=== PATIENT | male | born 1995 | race Hispanic/Latino ===

== ENCOUNTER 2024-09-22 19:02 | Emergency (ER) | payer SELFPAY ==
[2024-09-22] MEDS ORDERED: LIDOCAINE 1% 20 ML MDV ONE (19:41)
--- NOTE | 2024-09-22 20:59 | ER ---
Nurse's Notes [facility] Name: Jorge Oro Age: 29 yrs Sex: Male : 1995 Arrival Date: 09/22/2024 Time: 19:02 Bed 10 Private MD: Diagnosis: Puncture wound without foreign body of left hand Presentation: 09/22 19:27 Chief complaint: Patient states: Got a splinter in his left index finger this morning. cm10 Coronavirus screen: Client denies travel out of the [place] in the last 14 days. Ebola Screen: Patient denies travel to an Ebola-affected area in the 21 days before illness onset. Initial Sepsis Screen: Does the patient meet any 2 criteria? No. Patient's initial sepsis screen is negative. Does the patient have a suspected source of infection? No. Patient's initial sepsis screen is negative. Risk Assessment: Do you want to hurt yourself or someone else? Patient reports no desire to harm self or others. Onset of symptoms was September 22, 2024. 19:27 Method Of Arrival: Ambulatory 10 19:27 Acuity: YAMEL 4 cm10 Triage Assessment: 19:28 General: Appears in no apparent distress. uncomfortable, Behavior is calm, cooperative. cm10 Pain: Denies pain. Neuro: No deficits noted. Level of Consciousness is awake, alert, obeys commands, Oriented to person, place, time, situation, Appropriate for age. Respiratory: No deficits noted. Airway is patent Respiratory effort is even, unlabored, Respiratory pattern is regular, symmetrical. Historical: - Allergies: 19:28 No Known Allergies; cm10 - Home Meds: 19:28 None [Active]; cm10 - PMHx: 19:28 None; cm10 - PSHx: 19:28 None; cm10 - Immunization history:: Adult Immunizations up to date. - Infectious Disease History:: Denies. - Social history:: Smoking status: Reported history of juuling and/or vaping. Screenin:44 [facility] ED Fall Risk Assessment (Adult) History of falling in the last 3 months, bm8 including since admission No falls in past 3 months (0 pts) Confusion or Disorientation No (0 pts) Intoxicated or Sedated No (0 pts) Impaired Gait No (0 pts) Mobility Assist Device Used No (0 pt) Altered Elimination No (0 pt) Score/Fall Risk Level 0 - 2 = Low Risk Oriented to surroundings, Maintained a safe environment, Educated pt \T\ family on fall prevention, incl call for assistance when getting out of bed, Assessed \T\ reinforced patient's understanding of fall precautions, Hourly rounding (assess needs \T\ fall precautionary measures) done, Used ambulatory aids as needed (educated on \T\ assisted with), Used gait belt as appropriate. Abuse screen: Denies threats or abuse. Nutritional screening: No deficits noted. Tuberculosis screening: No symptoms or risk factors identified. Assessment: 19:44 General: Appears in no apparent distress. comfortable, Behavior is calm, cooperative, bm8 appropriate for age. Pain: Denies pain. Neuro: No deficits noted. Level of Consciousness is awake, alert, obeys commands, Oriented to person, place, time, situation, Appropriate for age. Cardiovascular: Denies chest pain, Capillary refill < 3 seconds in bilateral fingers Patient's skin is warm and dry. Respiratory: Airway is patent Respiratory effort is even, unlabored, Respiratory pattern is regular, symmetrical, Breath sounds are clear bilaterally. Derm: Wound noted lateral aspect of left fingers Wound is pt reports getting splinter into left index finger while working near [employer]. Swelling and redness noted to finger. 21:11 Reassessment: Patient appears in no apparent distress at this time. Patient and/or bm8 family updated on plan of care and expected duration. Pain level reassessed. Patient is alert, oriented x 3, equal unlabored respirations, skin warm/dry/pink. PT wound cleaned and dressed. Neosporin applied to wound. Patient states feeling better. Patient states symptoms have improved. Vital Signs: 19:27 BP 143 / 87; Pulse 56; Resp 15; Temp 98.6; Pulse Ox 100% ; Weight 95.25 kg; Height 5 cm10 ft. 4 in. ; Pain 0/10; 21:11 BP 125 / 74; Pulse 60; Resp 18; Temp 98.6; Pulse Ox 100% ; Pain 2/10; bm8 19:27 Body Mass Index 36.05 (95.25 kg, 162.56 cm) cm10 19:27 Pain Scale: Adult cm10 21:11 Pain Scale: Adult bm8 [place] Coma Score: 19:44 Eye Response: spontaneous(4). Motor Response: obeys commands(6). Verbal Response: bm8 oriented(5). Total: 15. 21:11 Eye Response: spontaneous(4). Motor Response: obeys commands(6). Verbal Response: bm8 oriented(5). Total: 15. ED Course: 19:05 Patient arrived in ED. al6 19:05 Irina Sim PA-C [facility]. sb4 19:05 Luis Vergara MD is Attending Physician. sb4 19:28 Triage completed. cm10 19:28 Arm band placed on right wrist. Patient placed in waiting room. cm10 19:40 Nathan Moreland, RN is Primary Nurse. bm8 19:44 Patient has correct armband on for positive identification. Bed in low position. Call bm8 light in reach. Side rails up X 1. Adult w/ patient. Client placed on continuous cardiac and pulse oximetry monitoring. NIBP monitoring applied. Pulse ox on. NIBP on. Door closed. Noise minimized. Verbal reassurance given. Head of bed elevated. 19:44 Assist provider with I \T\ D: of an abscess on left index finger Set up I\T\D tray. bm 8 Performed by Irina Sim PA-C Dressing with Neosporin and tape Patient tolerated well. Patient did not have IV access during this emergency room visit. Patient maintains SpO2 saturation greater than 95% on room air. 21:11 Provided Education on: post er care. bm8 Administered Medications: 20:50 Drug: Lidocaine Infiltration (1 %) 5 mg Infiltration once {Note: given by provider .} bm8 Route: Infiltration; Site: affected area; 21:18 Follow up: Response: No adverse reaction bm8 21:10 Drug: Boostrix Tdap IM 0.5 ml IM once; as a single dose Route: IM; Site: right deltoid; bm8 21:18 Follow up: Response: No adverse reaction bm8 21:10 Drug: Cephalexin PO 500 mg PO once Route: PO; bm8 21:18 Follow up: Response: No adverse reaction bm8 Medication: 21:11 Vaccine Information Statement (VIS) provided today. Questions and/or concerns bm8 addressed. VIS edition date: January 14, 2021. Outcome: 20:59 Discharge ordered by . sb4 21:11 Discharged to home ambulatory, bm8 21:11 Condition: stable 21:11 Discharge instructions given to patient, family, Instructed on discharge instructions, follow up and referral plans. no drinking with medication, no driving heavy equipment, medication usage, safety practices, Demonstrated understanding of instructions, follow-up care, medications, Prescriptions given X 1, 21:18 Patient left the ED. bm8 Signatures: Irina Sim PA-C PAShaina [email or web address] Pamela Niño RN RN cm10 Nathan Moreland RN RN bm8 Jessica Mcpherson al6
--- NOTE | 2024-09-22 20:59 | EDPHYS ---
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 He states that he was able to pull some of it out but did not get the whole thing. Is complaining of pain and swelling to the region, base of left index finger. Tetanus shot is not up-to-date. Historical: - Allergies: 19:28 No Known Allergies; cm10 - Home Meds: 19:28 None [Active]; cm10 - PMHx: 19:28 None; cm10 - PSHx: 19:28 None; cm10 - Immunization history:: Adult Immunizations up to date. - Infectious Disease History:: Denies. - Social history:: Smoking status: Reported history of juuling and/or vaping. ROS: 21:05 Constitutional: Negative for fever, chills, and weight loss, sb4 21:05 Skin: Positive for erythema, puncture, swelling, of the dorsal aspect of proximal phalanx of left index finger, 21:05 All other systems are negative, Exam: 21:05 Constitutional: This is a well developed, well nourished patient who is awake, alert, sb4 and in no acute distress. Head/Face: Normocephalic, atraumatic. Eyes: Extra-ocular motions intact. Periorbital areas with no swelling, redness, or edema. ENT: Mucous membranes moist. Respiratory: No increased work of breathing, no retractions or nasal flaring. 21:05 Skin: abscess, that is small, of the dorsal aspect of proximal phalanx of left index finger, with drainage, with fluctuance, with surrounding cellulitis, injury, puncture(s), that are superficial, of the dorsal aspect of proximal phalanx of left index finger, Vital Signs: 19:27 BP 143 / 87; Pulse 56; Resp 15; Temp 98.6; Pulse Ox 100% ; Weight 95.25 kg; Height 5 cm10 ft. 4 in. ; Pain 0/10; 21:11 BP 125 / 74; Pulse 60; Resp 18; Temp 98.6; Pulse Ox 100% ; Pain 2/10; bm8 19:27 Body Mass Index 36.05 (95.25 kg, 162.56 cm) cm10 19:27 Pain Scale: Adult cm10 21:11 Pain Scale: Adult bm8 [place] Coma Score: 19:44 Eye Response: spontaneous(4). Motor Response: obeys commands(6). Verbal Response: bm8 oriented(5). Total: 15. 21:11 Eye Response: spontaneous(4). Motor Response: obeys commands(6). Verbal Response: bm8 oriented(5). Total: 15. Procedures: 21:05 Foreign Body Removal: sliver of wood, from the left dorsal aspect of proximal phalanx sb4 of left index finger, by incising to remove, using lidocaine 1% without epinephrine to anesthesize the area, Dressing: nonadherent dressing, The patient tolerated the removal well, 11 blade used to make 1 cm incision, anesthetized with 2mL lidocaine. MDM: 19:08 Medical Screening Exam initiated sb4 21:07 Data reviewed: vital signs, nurses notes, and as a result, I will discharge patient. sb4 Counseling: I had a detailed discussion with the patient and/or guardian regarding the historical points, exam findings, and any diagnostic results supporting the discharge/admit diagnosis, the need for outpatient follow up, for definitive care, to return to the emergency department if symptoms worsen or persist or if there are any questions or concerns that arise at home. 09/22 19:29 Order name: Incision \T\ Drainage Setup; Complete Time: 19:44 sb4 09/22 20:58 Order name: Wound dressing; Complete Time: 21:10 sb4 Administered Medications: 20:50 Drug: Lidocaine Infiltration (1 %) 5 mg Infiltration once {Note: given by provider .} bm8 Route: Infiltration; Site: affected area; 21:18 Follow up: Response: No adverse reaction bm8 21:10 Drug: Boostrix Tdap IM 0.5 ml IM once; as a single dose Route: IM; Site: right deltoid; bm8 21:18 Follow up: Response: No adverse reaction bm8 21:10 Drug: Cephalexin PO 500 mg PO once Route: PO; bm8 21:18 Follow up: Response: No adverse reaction bm8 Disposition: 09/23 08:57 Co-signature as Attending Physician, Luis Vergara MD I reviewed the patient's care rt provided by the Advanced Practice Provider and agree with the diagnosis and treatment plan. Disposition Summary: 09/22/24 20:59 Discharge Ordered Notes: Location: Home sb4 Problem: new sb4 Symptoms: have improved sb4 Condition: Stable sb4 Diagnosis - Puncture wound without foreign body of left hand sb4 Followup: sb4 - With: Private Physician - When: 1 week - Reason: Recheck today's complaints, Re-evaluation by your physician Discharge Instructions: - Discharge Summary Sheet sb4 - Skin Abscess, [id number] sb4 - Puncture Wound, [id number] sb4 - Incision and Drainage, Care After sb4 - Skin Foreign Body sb4 Forms: - Antibiotic Education sb4 - Patient Portal Instructions sb4 - Leadership Thank You Letter sb4 - Work release form bm8 Prescriptions: - Cephalexin 500 mg Oral Capsule - take 1 capsule ORAL route every 8 hours for 10 days; 30 capsule; Refills: 0, sb4 Product Selection Permitted Signatures: Irina Sim PA-C PA-C sb4 Luis Vergara MD MD rt Pamela Niño RN RN cm10 Nathan Moreland RN RN bm8
[2024-09-22] MEDS ORDERED: CEPHALEXIN 250 MG CAP ONE (21:01)
[2024-09-22] MEDS ORDERED: TDAP (DIPHTH,PERTUSS(ACELL),TET VAC) 0.5 ML VIAL IMVAC ONE (21:02)
[2024-09-22 21:22] VITALS: TEMP 98.6; O2SAT 100
[2024-09-22 21:24] VITALS: BP 125/74
== END 2024-09-22 21:18 | disposition home or self-care (01) ==
LOC: ER 19:02
DX: S61.241A Puncture wound with foreign body of left index finger without damage to nail, initial encounter (principal)
CPT/HCPCS: 90715; 96372; 99284; J2003